=== PATIENT | female | born 1965 | race Caucasian/White ===

== ENCOUNTER → 2018-01-19 | Outpatient (CLI) | payer OTHER ==
[~2018-01-19] MED LIST: FLEXERIL 1010 MG/TAB PO; NORCO 325 MG-51 TAB PO; PERCOCET 325 MG1 TA2 PO
== END ==
LOC: MC.RAD 08:23
DX: N60.12 Diffuse cystic mastopathy of left breast (principal); N60.82 Other benign mammary dysplasias of left breast; R92.0 Mammographic microcalcification found on diagnostic imaging of breast

== ENCOUNTER 2022-09-30 06:55 | Day surgery (SDC) | payer BC ==
[2022-09-30] VITALS (9 sets, daily range): BP systolic 120–158; BP diastolic 58–87; PULSE 67–86; TEMP 97.5–97.8
[~2022-09-30] VITALS: Ht 172.7 cm; Wt 129.1 kg
[2022-09-30] MEDS ORDERED: PRILOSEC 20MG20 MG PO (08:42)
[2022-09-30] MEDS ORDERED: CVS SPECTRAVIT1 EA15 PO ×2 (08:44→08:46)
[2022-09-30] MEDS ORDERED: REFRESH TEARS 330 ML OP (08:46)
[2022-09-30] MEDS ORDERED: NORCO 325 MG-51 TAB PO (10:31)
--- NOTE | 2022-09-30 11:30 | NUR ---
Patient returns to room 1 per cart from PACU accompanied by [place] RN. Patient arouses to verbal stimuli. Lap sites x4 on abdomen covered with rodriguez set and wound edges well approximated. IV fluids infusing and site is free of redness or swelling. Siderails up x2 and call light in reach. Allowed to rest. Spouse in room.
--- NOTE | 2022-09-30 11:45 | NUR ---
Allowed to rest and not disturbed. IV fluids continue to infuse. Spouse in room.
--- NOTE | 2022-09-30 12:00 | NUR ---
Arouses and complains of being dizzy and feeling light headed. Allowed to rest and oxygen maintained. IV fluids infusing. Spouse in room.
--- NOTE | 2022-09-30 12:15 | NUR ---
Given Sprite to sip on. More awake.
--- NOTE | 2022-09-30 12:30 | NUR ---
More awake now and talking with spouse.
--- NOTE | 2022-09-30 13:00 | NUR ---
Patient is more awake now. Taking sips of Sprite.
--- NOTE | 2022-09-30 13:18 | NUR ---
IV fluids all infused and IV to INT. Taking few bites of toast.
--- NOTE | 2022-09-30 13:39 | NUR ---
Patient complains of incisional soreness at 4/10. States she still is feeling slightly dizzy. Tolerated toast and medicated with Tylenol 650mg po and Motrin 600mg po for discomfort. Oxygen removed.
--- NOTE | 2022-09-30 13:45 | NUR ---
Patient assisted up to the bathroom and gait is steady. Tolerates activity well. Given call light and instructed to call for assist back to room.
--- NOTE | 2022-09-30 14:05 | NUR ---
Dismissal instructions given and patient voices understanding of these. Instructed that pain medication is available to be picked up at [facility].
--- NOTE | 2022-09-30 14:05 | NUR ---
Patient returns to room and INT needle removed. Site is free of redness or swelling. Assisted patient with dressing. Tolerates activity well.
--- NOTE | 2022-09-30 14:09 | NUR ---
Patient discharged to home driven by spouse per private vehicle. Taken to car per wheelchair and assisted into car with dismissal instructions in hand.
== END 2022-09-30 14:08 | disposition home or self-care (01) ==
LOC: SDCO 06:55
DX: K80.10 Calculus of gallbladder with chronic cholecystitis without obstruction (principal); K21.9 Gastro-esophageal reflux disease without esophagitis; Z79.899 Other long term (current) drug therapy
CPT/HCPCS: J0690; J1100; J1170; J2405; J2704; J3010; J7120